=== PATIENT | female | born 1990 | race Caucasian/White ===

== ENCOUNTER 2019-06-20 19:17 | Emergency (ER) | payer OTHER ==
[~2019-06-20] VITALS: Ht 165.1 cm; Wt 86.2 kg
== END 2019-06-20 23:37 | disposition home or self-care (01) ==
LOC: ER 19:17
DX: O20.8 Other hemorrhage in early pregnancy (principal); Z34.01 Encounter for supervision of normal first pregnancy, first trimester

== ENCOUNTER 2019-07-01 11:22 | Emergency (ER) | payer OTHER ==
[~2019-07-01] VITALS: Ht 165.1 cm; Wt 82.6 kg
[2019-07-01] MEDS ORDERED: FOLIC ACID0.8 M1 (11:58)
[2019-07-01] MEDS ORDERED: PEPCID AC20 MG PO (16:07)
== END 2019-07-01 16:15 | disposition home or self-care (01) ==
LOC: ER 11:22
DX: O26.891 Other specified pregnancy related conditions, first trimester (principal); K29.70 Gastritis, unspecified, without bleeding; K52.9 Noninfective gastroenteritis and colitis, unspecified

== ENCOUNTER → 2019-07-21 | Day surgery (SDC) | payer OTHER ==
[~2019-07-21] VITALS: Ht 165.1 cm; Wt 86.2 kg
[~2019-07-21] MED LIST: FOLIC ACID0.8 M1; PEPCID AC20 MG PO; PRENATALES; [UNRECOGNIZED DRUG - OTHER]
== END | disposition home or self-care (01) ==
LOC: ER 05:41 → CIR.AMB 07:32
DX: O03.4 Incomplete spontaneous abortion without complication (principal)

== ENCOUNTER 2024-01-18 17:55 | Emergency (ER) | payer OTHER ==
[~2024-01-18] VITALS: Ht 165.1 cm; Wt 113.4 kg
[2024-01-18 19:27] LABS: HEMATOCRIT 37.3 % (36.0-45.00); HEMOGLOBIN 12.7 g/dL (12.0-15.00); MEAN CORPUSCULAR HEMOGLOBIN 29.6 pg (27.00-32.0); MEAN CORPUSCULAR HGB CONC 34.1 g/dl (32.0-36.0); PLATELET COUNT 267 K/uL (150-450); RED BLOOD COUNT 4.29 M/uL (4.00-6.00); RED CELL DISTRIBUTION WIDTH 14.1 % (11.5-14.5)
[2024-01-18 19:44] LABS: PARTIAL THROMBOPLASTIN TIME 28.5 SECONDS (22.0-34.0); PROTHROMBIN TIME 10.9 SECONDS (9.0-11.5)
[2024-01-18 20:08] LABS: CALCIUM 8.7 mg/dL (8.5-10.1); CREATININE SERUM 0.92 mg/dL (0.55-1.02); GFR 70.74; POTASSIUM 3.51 mEq/L (3.5-5.1)
[2024-01-18 23:08] LABS: URINE APPEARANCE Clear; URINE BILIRRUBIN Negative (NEGATIVE); URINE BLOOD Trace; URINE COLOR Yellow; URINE GLUCOSE Negative (NEGATIVE); URINE KETONE Negative (NEGATIVE); URINE LEUKOCYTE Negative; URINE NITRATE Positive; URINE PROTEIN Negative (NEGATIVE); URINE UROBILINOGEN 0.2 E.U./dl
[2024-01-18 23:12] LABS: URINE RBC 2.9 uL (0.0-20.8); URINE WBC 26.7 uL (0.0-23.2)
[2024-01-18 23:18] LABS: URINE BACTERIA > 9821.5 uL (0.0-1933)
== END 2024-01-19 00:09 | disposition home or self-care (01) ==
LOC: ER 17:56
PROVIDERS: General Practice
DX: O26.891 Other specified pregnancy related conditions, first trimester (principal); R10.2 Pelvic and perineal pain; Z3A.01 Less than 8 weeks gestation of pregnancy

== ENCOUNTER 2024-03-24 08:32 | Outpatient (CLI) | payer OTHER | END 2024-03-24 08:33 | disposition home or self-care (01) | LOC: PRENATAL 08:32 | PROVIDERS: ATTEND Obstetrics & Gynecology Maternal & Fetal Medicine | DX: O36.80X0 Pregnancy with inconclusive fetal viability, not applicable or unspecified (principal); Z36.82 Encounter for antenatal screening for nuchal translucency; O34.219 Maternal care for unspecified type scar from previous cesarean delivery; Z36.9 Encounter for antenatal screening, unspecified; Z14.8 Genetic carrier of other disease; Z3A.14 14 weeks gestation of pregnancy ==

== ENCOUNTER → 2024-05-15 12:43 | Outpatient (CLI) | payer OTHER | END | disposition home or self-care (01) | LOC: PRENATAL 12:43 | PROVIDERS: ATTEND Obstetrics & Gynecology Maternal & Fetal Medicine | DX: O35.3XX0 Maternal care for (suspected) damage to fetus from viral disease in mother, not applicable or unspecified (principal); O44.00 Complete placenta previa NOS or without hemorrhage, unspecified trimester; O34.219 Maternal care for unspecified type scar from previous cesarean delivery; Z3A.22 22 weeks gestation of pregnancy ==

== ENCOUNTER 2024-07-28 13:03 | Outpatient (CLI) | payer OTHER | END 2024-07-28 13:05 | disposition home or self-care (01) | LOC: PRENATAL 13:03 | PROVIDERS: ATTEND Obstetrics & Gynecology Maternal & Fetal Medicine | DX: O26.849 Uterine size-date discrepancy, unspecified trimester (principal); O36.8199 Decreased fetal movements, unspecified trimester, other fetus; O34.219 Maternal care for unspecified type scar from previous cesarean delivery; O40.1XX0 Polyhydramnios, first trimester, not applicable or unspecified; O36.60X0 Maternal care for excessive fetal growth, unspecified trimester, not applicable or unspecified; Z3A.35 35 weeks gestation of pregnancy ==

== ENCOUNTER 2024-08-24 09:06 | Outpatient (CLI) | payer OTHER | END 2024-08-24 09:07 | disposition home or self-care (01) | LOC: PRENATAL 09:06 | PROVIDERS: ATTEND Obstetrics & Gynecology Maternal & Fetal Medicine | DX: O26.849 Uterine size-date discrepancy, unspecified trimester (principal); O36.8199 Decreased fetal movements, unspecified trimester, other fetus; O34.219 Maternal care for unspecified type scar from previous cesarean delivery; O40.1XX0 Polyhydramnios, first trimester, not applicable or unspecified; O36.60X0 Maternal care for excessive fetal growth, unspecified trimester, not applicable or unspecified; Z3A.38 38 weeks gestation of pregnancy ==

== ENCOUNTER 2024-09-04 08:15 | Inpatient (IN) | payer OTHER ==
[~2024-09-04] VITALS: Ht 165.1 cm; Wt 4.1 kg
[2024-09-04 10:23] LABS: HEMATOCRIT 32.3 % (36.0-45.00); HEMOGLOBIN 10.6 g/dL (12.0-15.00); MEAN CELL VOLUME 84.2 fL (80.00-100.00); MEAN CORPUSCULAR HEMOGLOBIN 27.5 pg (27.00-32.0); MEAN CORPUSCULAR HGB CONC 32.6 g/dl (32.0-36.0); PLATELET COUNT 296 K/uL (150-450); RED BLOOD COUNT 3.84 M/uL (4.00-6.00); RED CELL DISTRIBUTION WIDTH 13.9 % (11.5-14.5)
[2024-09-04 10:29] LABS: INR < 0.93; PARTIAL THROMBOPLASTIN TIME 26.9 SECONDS (22.0-34.0); PROTHROMBIN TIME 10.2 SECONDS (9.0-11.5)
[2024-09-04 10:32] LABS: RH POSITIVE
[2024-09-04 10:49] LABS: URINE APPEARANCE Cloudy; URINE BILIRRUBIN Negative (NEGATIVE); URINE BLOOD Negative; URINE COLOR Yellow; URINE GLUCOSE Negative (NEGATIVE); URINE KETONE Negative (NEGATIVE); URINE LEUKOCYTE Small; URINE NITRATE Negative; URINE PROTEIN Trace (NEGATIVE); URINE UROBILINOGEN 0.2 E.U./dl
[2024-09-04 10:53] LABS: URINE BACTERIA 6198.2 uL (0.0-1933); URINE RBC 5.5 uL (0.0-20.8); URINE WBC 78.3 uL (0.0-23.2)
[2024-09-04 11:26] LABS: URINE CAST 0.29 uL (0.0-1.40)
[2024-09-04 11:27] LABS: URINE CRYSTALS FEW /HPF
[2024-09-08] MEDS ORDERED: PRENATAL + DHA1 EAC1 PO (08:25)
[2024-09-08] MEDS ORDERED: FOLIC ACID0.8 M1 PO (08:25)
[2024-09-08 08:26] VITALS: BP 90/55
[2024-09-08] MEDS ORDERED: ERYTHROMYCIN BASE OPHT 1GM EACH TUBE OP ONE (13:04)
[2024-09-08] MEDS ORDERED: CEFAZOLIN SODIUM 1,000 MG VIAL ONE (13:07)
[2024-09-08] MEDS ORDERED: OXYTOCIN 10 UNITS/ML VIAL ONE (13:45)
[2024-09-08] MEDS ORDERED: MORPHINE SULFATE 4 MG/ML VIAL IV ONE ×3 (16:25→18:15)
[2024-09-08] MEDS ORDERED: MORPHINE SULFATE 4 MG/ML CARTRIDGE IV SCH (21:00)
[2024-09-08 21:32] VITALS: BP 112/75
[2024-09-09 00:03] VITALS: BP 93/60
[2024-09-09 06:07] VITALS: BP 90/60
[2024-09-09 06:54] LABS: HEMATOCRIT 32.3 % (36.0-45.00); HEMOGLOBIN 10.7 g/dL (12.0-15.00); MEAN CELL VOLUME 81.8 fL (80.00-100.00); PLATELET COUNT 262 K/uL (150-450); RED BLOOD COUNT 3.95 M/uL (4.00-6.00)
[2024-09-09] MEDS ORDERED: OxyCODONE HCL 5 MG TABLET (ROXICODONE) PO PRN (08:00)
[2024-09-09] MEDS ORDERED: ACETAMINOPHEN 325 MG TABLET PO PRN (08:00)
[2024-09-09 08:26] VITALS: BP 132/75
[2024-09-09] MEDS ORDERED: PNV,CALCIUM 72/IRON/FOLIC ACID 1 TAB TABLET PO SCH (09:00)
[2024-09-09] MEDS ORDERED: SIMETHICONE 125 MG CAPSULE PO SCH (09:00)
[2024-09-09] MEDS ORDERED: DOCUSATE SODIUM 100MG CAP PO SCH (09:00)
[2024-09-09 16:00] VITALS: BP 107/71
[2024-09-10] VITALS: BP 107/71; O2SAT 98
[2024-09-10 16:26] VITALS: BP 113/71; O2SAT 99
[2024-09-11] VITALS: BP 105/68
[2024-09-11 08:46] VITALS: BP 110/67
== END 2024-09-11 12:44 | disposition home or self-care (01) | DRG 785 ==
LOC: O/R 09-08 08:06 → LDR 09-08 08:15 → OB/GYN 09-08 20:11 → O/R 09-11 10:35 → OB/GYN 09-11 10:36
PROVIDERS: ADMIT Obstetrics & Gynecology; ATTEND Obstetrics & Gynecology
PROC: 0UB70ZZ Excision of Bilateral Fallopian Tubes, Open Approach (ICD-10-PCS; 2024-09-08)
PROC: 4A1HXCZ Monitoring of Products of Conception, Cardiac Rate, External Approach (ICD-10-PCS; 2024-09-08)
PROC: 10D00Z1 Extraction of Products of Conception, Low, Open Approach (ICD-10-PCS; principal; 2024-09-08 16:10)
DX: O34.211 Maternal care for low transverse scar from previous cesarean delivery (principal); O36.63X0 Maternal care for excessive fetal growth, third trimester, not applicable or unspecified; Z3A.38 38 weeks gestation of pregnancy; Z37.0 Single live birth; Z30.2 Encounter for sterilization